=== PATIENT | male | born 1950 | race African-American/Black ===

== ENCOUNTER 2019-06-11 08:24 | Inpatient (IN) | payer BC, MEDICAID ==
[~2019-06-11] VITALS: Ht 170.2 cm; Wt 72.8 kg
[2019-06-11] VITALS (19 sets, daily range): BP systolic 108–172; BP diastolic 44–107
[2019-06-11] MEDS ORDERED: AMLO5TAB88 PO (09:00)
[2019-06-11] MEDS ORDERED: SODIUM CHLORIDE 0.9% 1,000 ML IV ONE (10:03)
[2019-06-11] MEDS ORDERED: ASPIRIN 81MG TABLET PO ONE (10:15)
[2019-06-11] MEDS ORDERED: CLONIDINE 0.2MG TABLET PO ONE (10:15)
[2019-06-11 10:34] LABS: BASOPHILS % 0.8 % (0.0-2.0); EOSINOPHILS % 2.8 % (0.0-5.0); HEMATOCRIT. 39.2 % (42.0-52.0); LYMPHOCYTES % 34.1 % (20.0-50.0); MEAN CORPUSCULAR HEMOGLOBIN 29.1 pg (28.0-32.0); MEAN CORPUSCULAR VOLUME 87.6 fL (80.0-94.0); MEAN PLATELET VOLUME 8.8 fl (7.4-10.4); MONOCYTES % 10.7 % (2.0-8.0); NEUTROPHILS % 51.6 % (40.0-76.0); PLATELET 197 x1000/uL (130-400); RED BLOOD CELL COUNT 4.48 mill/uL (4.7-6.1); RED CELL DISTRIBUTION WIDTH 13.7 % (11.6-14.6)
[2019-06-11 10:43] LABS: CHLORIDE 106 mEq/L (98-107)
[2019-06-11 10:44] LABS: D-DIMER 1.76 mg/L FEU (<0.50); PARTIAL THROMBOPLASTIN TIME 27.8 sec (23.4-31.0); PROTHROMBIN TIME 10.7 sec (9.6-11.0)
[2019-06-11] MEDS ORDERED: ENOXAPARIN 80MG/0.8ML SYR SUBCUT ONE (11:45)
[2019-06-11] MEDS ORDERED: IOHEXOL-350 100 ML BOTTLE ONE (12:32)
[2019-06-11] MEDS ORDERED: MIDAZOLAM HCL 2 MG/2 ML VIAL ONE (12:39)
[2019-06-11] MEDS ORDERED: IODIXANOL 320MG/ML 100 ML BOTTLE IV ONE (12:39)
[2019-06-11] MEDS ORDERED: LIDOCAINE HCL 1% 20ML VIAL (Pyxis) INJ ONE (12:39)
[2019-06-11] MEDS ORDERED: FENTANYL CITRATE/PF 50MCG/ML 2ML VIAL ONE (12:39)
[2019-06-11] MEDS ORDERED: ACETAMINOPHEN 325MG TABLET PO PRN (13:45)
[2019-06-11] MEDS ORDERED: ONDANSETRON HCL 4MG/2ML INJ IV PRN ×2 (13:45→14:15)
[2019-06-11] MEDS ORDERED: ATROPINE SULFATE 1MG/10ML SYR IV PRN (13:45)
[2019-06-11] MEDS ORDERED: IPRATROPIUM/ALBUTEROL 0.5-3(2.5)MG/3ML NEB NEB PRN (14:15)
[2019-06-11] MEDS ORDERED: ACETAMINOPHEN 650MG SUPP PR PRN (14:15)
[2019-06-11] MEDS ORDERED: NICARDIPINE 100MCG/ML 10ML VIAL (CATH LAB) IV ONE (15:04)
[2019-06-11] MEDS ORDERED: NITROGLYCERIN 50MCG/ML 10ML VIAL (CATH LAB) IV ONE (15:04)
[2019-06-11] MEDS ORDERED: HEPARIN SODIUM 1,000 UNIT/1ML VIAL IV ONE (15:04)
[2019-06-11] MEDS ORDERED: DEXT 5%/0.45% NACL 1000ML 1,000 ML IV SCH (15:45)
[2019-06-11] MEDS ORDERED: PANTOPRAZOLE SODIUM 40 MG/VIAL IV SCH (15:45)
[2019-06-11 15:50] LABS: CLARITY URINE CLEAR (CLEAR); COLOR URINE YELLOW (YELLOW); KETONES URINE NEGATIVE (NEGATIVE); LEUKOCYTE ESTERASE URINE NEGATIVE (NEGATIVE); NITRITE URINE NEGATIVE (NEGATIVE); OCCULT BLOOD URINE NEGATIVE (NEGATIVE); PROTEIN URINE NEGATIVE (NEGATIVE); SPECIFIC GRAVITY URINE 1.059 (1.005-1.030); UROBILINOGEN URINE 0.2 E.U./dL (0.2-1.0)
[2019-06-11 15:59] LABS: *AMPHETAMINES SCREEN URINE NEGATIVE (NEGATIVE); *BARBITURATES SCREEN URINE NEGATIVE (NEGATIVE); *BENZODIAZEPINES SCREEN URINE PRESUMTIVE POSITIVE (NEGATIVE); *COCAINE SCREEN URINE NEGATIVE (NEGATIVE)
[2019-06-11 16:00] LABS: CANNABINOID URINE SCREEN NEGATIVE (NEGATIVE); METHADONE URINE SCREEN NEGATIVE (NEGATIVE); OPIATES URINE SCREEN NEGATIVE (NEGATIVE); PHENCYCLIDINE URINE SCREEN NEGATIVE (NEGATIVE)
[2019-06-11] MEDS ORDERED: ENOXAPARIN 60MG/0.6ML SYR SUBCUT NR (17:00)
[2019-06-11] MEDS ORDERED: MAGNESIUM 2 G PREMIX 50 ML IV NR (19:30)
[2019-06-11] MEDS: ALLOPURINOL 300 MG TABLET PO SCH (20:44)
[2019-06-11 20:48] LABS: INR 1.1; PROTHROMBIN TIME 10.9 sec (9.6-11.0)
[2019-06-11 20:58] LABS: CHLORIDE 110 mEq/L (98-107)
[2019-06-11] MEDS ORDERED: ATORVASTATIN CALCIUM 20MG TABLET PO SCH (21:00)
[2019-06-11] MEDS ORDERED: ASCORBIC ACID 500 MG TABLET PO SCH (21:00)
[2019-06-11] MEDS ORDERED: CHLORHEXIDINE GLUCONATE 4% EXTERNAL USE TOP SCH (21:00)
[2019-06-11] MEDS ORDERED: DOCUSATE SODIUM 100MG CAPSULE PO SCH (21:00)
[2019-06-11] MEDS ORDERED: METOPROLOL TARTRATE 25MG TABLET PO SCH (21:00)
[2019-06-12] VITALS (61 sets, daily range): BP systolic 113–200; BP diastolic 34–99
[2019-06-12] MEDS ORDERED: INSULIN REGULAR (DRIP) 100 UNITS in SODIUM CHLORIDE 0.9% 99 ML IV SCH ×2 (00:15→17:42)
[2019-06-12 00:57] LABS: CREATINE KINASE MB FRACTION 3.8 ng/mL (0.5-3.6)
[2019-06-12] MEDS ORDERED: ACETAMINOPHEN 500MG TABLET PO NR (04:30)
[2019-06-12] MEDS: ALLOPURINOL 300 MG TABLET PO SCH (04:34)
[2019-06-12] MEDS: CHLORHEXIDINE GLUCONATE 4% EXTERNAL USE TOP SCH (05:14)
[2019-06-12] MEDS ORDERED: BACITRACIN 15GM TUBE TOP ONE (05:23)
[2019-06-12] MEDS ORDERED: SKIN ADHESIVE 0.7 GM EA TOP ONE (05:23)
[2019-06-12] MEDS ORDERED: THROMBIN (BOVINE) 5000 UNITS/VIAL TOP ONE (05:24)
[2019-06-12] MEDS ORDERED: BACITRACIN 50,000 UNITS/VIAL ONE (05:24)
[2019-06-12] MEDS ORDERED: HEPARIN 1000 UNITS/ML 10ML ONE ×4 (05:39→07:22)
[2019-06-12] MEDS ORDERED: DOPAMINE 400MG/250ML PREMIX 250 ML IV ONE (05:39)
[2019-06-12] MEDS ORDERED: NITROGLYCERIN 50MG PREMIX 250 ML IV ONE (05:40)
[2019-06-12] MEDS ORDERED: PROPOFOL 200MG/20ML VIAL IV ONE (05:49)
[2019-06-12] MEDS ORDERED: CALCIUM CHLORIDE 1GM/10ML SYR IV ONE (05:50)
[2019-06-12 05:51] LABS: BASOPHILS % 0.9 % (0.0-2.0); EOSINOPHILS % 3.3 % (0.0-5.0); HEMATOCRIT. 35.5 % (42.0-52.0); HEMOGLOBIN. 11.8 g/dL (14.0-18.0); LYMPHOCYTES % 30.8 % (20.0-50.0); MEAN CORPUSCULAR HEMOGLOBIN 29.1 pg (28.0-32.0); MEAN CORPUSCULAR VOLUME 87.4 fL (80.0-94.0); MEAN PLATELET VOLUME 9.2 fl (7.4-10.4); MONOCYTES % 8.1 % (2.0-8.0); NEUTROPHILS % 56.9 % (40.0-76.0); PLATELET 179 x1000/uL (130-400); RED BLOOD CELL COUNT 4.06 mill/uL (4.7-6.1); RED CELL DISTRIBUTION WIDTH 13.4 % (11.6-14.6)
[2019-06-12] MEDS ORDERED: AMINOCAPROIC ACID 250 MG/ML 20ML VIAL ONE (05:51)
[2019-06-12] MEDS ORDERED: MIDAZOLAM HCL 2 MG/2 ML VIAL ONE (05:55)
[2019-06-12] MEDS ORDERED: DIPHENHYDRAMINE 50MG/ML VIAL ONE (05:56)
[2019-06-12] MEDS ORDERED: FENTANYL CITRATE/PF 50MCG/ML 5ML VIAL ONE (05:56)
[2019-06-12] MEDS ORDERED: ONDANSETRON HCL 4MG/2ML INJ ONE (05:56)
[2019-06-12] MEDS ORDERED: LIDOCAINE HCL/PF 1% 10 MG/ML 5ML VIAL ONE ×2 (05:56→06:49)
[2019-06-12] MEDS ORDERED: DEXAMETHASONE 4MG/ML 1ML VIAL ONE (05:59)
[2019-06-12] MEDS ORDERED: PAPAVERINE HCL 180MG in SODIUM CHLORIDE 0.9% 24ML IV SCH (06:00)
[2019-06-12] MEDS ORDERED: CEFAZOLIN 2,000 MG in DEXT 5% WATER 100 ML IV SCH (06:00)
[2019-06-12] MEDS ORDERED: AMINOCAPROIC ACID 10,000 MG in SODIUM CHLORIDE 0.9% 460 ML IV SCH (06:00)
[2019-06-12] MEDS ORDERED: NICARDIPINE 40MG/200ML PREMIX 200 ML IV SCH (06:00)
[2019-06-12] MEDS ORDERED: PHENYLEPHRINE 10 MG in DEXT 5% WATER 249 ML IV SCH (06:00)
[2019-06-12] MEDS ORDERED: EPINEPHRINE 4 MG in DEXT 5% WATER 246 ML IV SCH (06:00)
[2019-06-12] MEDS ORDERED: DILTIAZEM HCL 5MG/ML 5ML VIAL IV SCH (06:00)
[2019-06-12] MEDS ORDERED: NOREPINEPHRINE 4 MG in DEXT 5% WATER 246 ML IV SCH (06:00)
[2019-06-12] MEDS ORDERED: DOBUTAMINE 250MG PREMIX 250 ML IV SCH (06:00)
[2019-06-12] MEDS ORDERED: DEL NIDO ELECTROLYTE-S(PH 7.4) 1,000 ML IV SCH ×2 (06:00)
[2019-06-12] MEDS ORDERED: ROCURONIUM BROMIDE 10MG/ML VIAL 5ML IV ONE (06:02)
[2019-06-12] MEDS ORDERED: ETOMIDATE 2MG/ML 10ML VIAL IV ONE (06:03)
[2019-06-12 06:10] LABS: CHLORIDE 109 mEq/L (98-107)
[2019-06-12 06:18] LABS: LDL CHOLESTEROL 122 mg/dL (5-100)
[2019-06-12 06:20] LABS: CREATINE KINASE 171 IU/L (39-308)
[2019-06-12 06:21] LABS: CREATINE KINASE MB FRACTION 3.9 ng/mL (0.5-3.6); HDL CHOLESTEROL 47 mg/dL (40-59); T4 FREE 0.91 ng/dL (0.76-1.46)
[2019-06-12] MEDS ORDERED: ALBUMIN HUMAN 25GM/100ML (25%) IV ONE (07:30)
[2019-06-12] MEDS ORDERED: FUROSEMIDE 100MG/10ML VIAL ONE (07:42)
[2019-06-12] MEDS ORDERED: ASPIRIN 81MG EC TABLET PO SCH (09:00)
[2019-06-12] MEDS ORDERED: NEOSTIGMINE METHYLSULFATE 1MG/ML 10 ML VIAL ONE (10:11)
[2019-06-12] MEDS ORDERED: SODIUM CHLORIDE 0.9% 500 ML IV PRN (10:32)
[2019-06-12] MEDS ORDERED: DOPAMINE 400MG/250ML PREMIX 250 ML IV PRN (10:32)
[2019-06-12] MEDS ORDERED: MAGNESIUM SULFATE 1G IN DEXT 5% 100ML PREMIX IV ONE (10:39)
[2019-06-12] MEDS ORDERED: POTASSIUM CHLORIDE 10MEQ IN WATER 50ML PREMIX IV ONE (10:39)
[2019-06-12] MEDS ORDERED: ALBUMIN HUMAN 12.5G/250ML (5%) IV ONE (10:39)
[2019-06-12] MEDS ORDERED: ALBUMIN HUMAN 12.5G/250ML (5%) IV PRN (10:45)
[2019-06-12] MEDS ORDERED: MAGNESIUM 1 G PREMIX 100 ML IV PRN (10:45)
[2019-06-12] MEDS ORDERED: ALBUMIN HUMAN 25GM/100ML (25%) IV PRN (10:45)
[2019-06-12] MEDS ORDERED: MAGNESIUM 2 G PREMIX 50 ML IV PRN (10:45)
[2019-06-12] MEDS ORDERED: EPINEPHRINE 1 MG in DEXT 5% WATER 249 ML IV PRN (10:45)
[2019-06-12] MEDS ORDERED: MORPHINE SULFATE 2 MG/ML CPJ (NOT FOR IM USE) IV PRN (10:45)
[2019-06-12] MEDS: NICARDIPINE 50 MG in SODIUM CHLORIDE 0.9% 230 ML IV PRN ×3 (11:00→20:55)
[2019-06-12 11:15] LABS: BG CARBOXYHEMOGLOBIN 0.2 % (0.5-1.5); BG DEOXYHEMOGLOBIN 2.3 % (0.0-5.0); BG FRACTION INSPIRED OXYGEN 60; BG HCO3 ACT 18.5 mmol/L (22.0-26.0); BG METHEMOGLOBIN 0.3 % (0.0-1.5); BG OXYGEN SATURATION 97.7 % (92.0-98.5); BG OXYHEMOGLOBIN 97.2 % (94.0-97.0); BG PCO2 41.7 mmHg (35.0-45.0); BG PH 7.265 (7.350-7.450); BG PO2 108.8 mmHg (75.0-100.0); BG SAMPLE SITE A-LINE; BG TOTAL HEMOGLOBIN 11.7 g/dL (12.0-18.0); BG VENT MODE MASK - SIMPLE
[2019-06-12 11:44] LABS: BASOPHILS % 0.3 % (0.0-2.0); EOSINOPHILS % 0.3 % (0.0-5.0); HEMATOCRIT. 31.4 % (42.0-52.0); HEMOGLOBIN. 10.3 g/dL (14.0-18.0); MEAN CORPUSCULAR HEMOGLOBIN 29.1 pg (28.0-32.0); MEAN CORPUSCULAR VOLUME 88.9 fL (80.0-94.0); MEAN PLATELET VOLUME 8.7 fl (7.4-10.4); MONOCYTES % 3.1 % (2.0-8.0); NEUTROPHILS % 85.3 % (40.0-76.0); PLATELET 167 x1000/uL (130-400); RED BLOOD CELL COUNT 3.53 mill/uL (4.7-6.1); RED CELL DISTRIBUTION WIDTH 13.2 % (11.6-14.6)
[2019-06-12 11:52] LABS: INR 1.2; PARTIAL THROMBOPLASTIN TIME 35.7 sec (23.4-31.0); PROTHROMBIN TIME 12.4 sec (9.6-11.0)
[2019-06-12 11:53] LABS: CHLORIDE 111 mEq/L (98-107)
[2019-06-12] MEDS: DEXT 5%/0.45% NACL 1000ML 1,000 ML IV SCH (12:07)
[2019-06-12] MEDS: IPRATROPIUM/ALBUTEROL 0.5-3(2.5)MG/3ML NEB HHN SCH ×3 (12:17→20:01)
[2019-06-12] MEDS ORDERED: KCL 20MEQ/100ML PREMIX 50 ML IV PRN (12:30)
[2019-06-12] MEDS ORDERED: KCL 20MEQ/100ML PREMIX 100 ML IV PRN ×2 (12:30→13:12)
[2019-06-12] MEDS: MAGNESIUM SULFATE 3 GM in DEXT 5% WATER 100 ML IV PRN ×2 (13:09→17:33)
[2019-06-12] MEDS: KCL 20MEQ/100ML PREMIX 100 ML IV PRN ×2 (13:09→14:30)
[2019-06-12] MEDS: KETOROLAC 15MG/ML VIAL IV SCH ×2 (13:36→19:30)
[2019-06-12] MEDS: CEFAZOLIN 1000MG PREMIX 50 ML IV SCH ×2 (15:25→22:03)
[2019-06-12] MEDS: BACITRACIN 15GM TUBE TOP SCH (16:15)
[2019-06-12] MEDS: DOCUSATE SODIUM 100MG CAPSULE PO SCH (16:15)
[2019-06-12] MEDS: OXYCODONE HCL/ACETAMINOPHEN 5/325MG TABLET PO PRN (16:16)
[2019-06-12 16:42] LABS: HEMOGLOBIN 10.8 g/dL (14.0-18.0); MEAN CORPUSCULAR HEMOGLOBIN 29.3 pg (28.0-32.0); MEAN CORPUSCULAR VOLUME 86.7 fL (80.0-94.0); PLATELET 159 x1000/uL (130-400); RED BLOOD CELL COUNT 3.69 mill/uL (4.7-6.1)
[2019-06-12 16:49] LABS: CHLORIDE 114 mEq/L (98-107)
[2019-06-12] MEDS: KCL 10MEQ/50ML PREMIX 50 ML IV PRN (17:33)
[2019-06-12] MEDS ORDERED: DEXTROSE 50% WATER 50ML SYRINGE IV PRN ×2 (17:45)
[2019-06-12] MEDS: BLOOD SUGAR DIAGNOSTIC STRIP TEST SCH ×6 (18:00→22:57)
[2019-06-12] MEDS: CLOPIDOGREL 75MG TABLET PO SCH (19:38)
[2019-06-12] MEDS: ASPIRIN 81MG TABLET PO SCH (19:38)
[2019-06-12] MEDS: METOPROLOL TARTRATE 25MG TABLET PO SCH ×2 (19:39→20:21)
[2019-06-12 22:28] LABS: CHLORIDE 107 mEq/L (98-107)
[2019-06-12 22:35] LABS: PHOSPHORUS 2.4 mg/dL (2.5-4.9)
[2019-06-13] VITALS (64 sets, daily range): BP systolic 112–155; BP diastolic 47–94
[2019-06-13] MEDS: IPRATROPIUM/ALBUTEROL 0.5-3(2.5)MG/3ML NEB HHN SCH ×6 (00:18→19:52)
[2019-06-13] MEDS: BLOOD SUGAR DIAGNOSTIC STRIP TEST SCH ×16 (00:33→21:00)
[2019-06-13] MEDS: KETOROLAC 15MG/ML VIAL IV SCH ×2 (01:38→07:22)
[2019-06-13] MEDS: NICARDIPINE 50 MG in SODIUM CHLORIDE 0.9% 230 ML IV PRN (02:12)
[2019-06-13 05:49] LABS: BASOPHILS % 0.1 % (0.0-2.0); EOSINOPHILS % 0.1 % (0.0-5.0); HEMOGLOBIN. 11.2 g/dL (14.0-18.0); LYMPHOCYTES % 11.9 % (20.0-50.0); MEAN CORPUSCULAR HEMOGLOBIN 29.5 pg (28.0-32.0); MEAN PLATELET VOLUME 8.9 fl (7.4-10.4); MONOCYTES % 9.1 % (2.0-8.0); NEUTROPHILS % 78.8 % (40.0-76.0); PLATELET 167 x1000/uL (130-400); RED BLOOD CELL COUNT 3.79 mill/uL (4.7-6.1); RED CELL DISTRIBUTION WIDTH 13.1 % (11.6-14.6)
[2019-06-13 05:54] LABS: CHLORIDE 107 mEq/L (98-107)
[2019-06-13] MEDS: CEFAZOLIN 1000MG PREMIX 50 ML IV SCH ×2 (06:05→14:39)
[2019-06-13] MEDS: KCL 10MEQ/50ML PREMIX 50 ML IV PRN ×2 (06:06→07:23)
[2019-06-13] MEDS: DEXT 5%/0.45% NACL 1000ML 1,000 ML IV SCH (07:45)
[2019-06-13] MEDS: CLOPIDOGREL 75MG TABLET PO SCH (07:56)
[2019-06-13] MEDS: DOCUSATE SODIUM 100MG CAPSULE PO SCH ×2 (07:56→17:00)
[2019-06-13] MEDS: ASPIRIN 81MG TABLET PO SCH (07:56)
[2019-06-13] MEDS: METOPROLOL TARTRATE 50MG TABLET PO SCH ×2 (07:57→21:46)
[2019-06-13] MEDS: BACITRACIN 15GM TUBE TOP SCH ×2 (07:57→17:05)
[2019-06-13] MEDS: CHLORHEXIDINE GLUCONATE 4% EXTERNAL USE TOP SCH (08:48)
[2019-06-13] MEDS ORDERED: LISINOPRIL 10MG TABLET PO SCH (09:00)
[2019-06-13] MEDS ORDERED: DEXTROSE 50% WATER 50ML SYRINGE IV PRN (12:00)
[2019-06-13] MEDS: INSULIN LISPRO 100 UNITS/ML SUBCUT SCH ×3 (12:40→21:00)
[2019-06-13] MEDS ORDERED: BLOOD SUGAR DIAGNOSTIC STRIP TEST SCH (12:50)
[2019-06-13] MEDS: OXYCODONE HCL/ACETAMINOPHEN 5/325MG TABLET PO PRN (17:00)
[2019-06-13] MEDS: LISINOPRIL 10MG TABLET PO SCH (21:46)
[2019-06-13] MEDS: ATORVASTATIN CALCIUM 40MG TABLET PO SCH (21:46)
[2019-06-14] VITALS (12 sets, daily range): BP systolic 119–176; BP diastolic 77–114
[2019-06-14] MEDS: IPRATROPIUM/ALBUTEROL 0.5-3(2.5)MG/3ML NEB HHN SCH ×5 (05:00→20:45)
[2019-06-14] MEDS: OXYCODONE HCL/ACETAMINOPHEN 5/325MG TABLET PO PRN ×2 (05:13→11:47)
[2019-06-14 05:54] LABS: BASOPHILS % 0.4 % (0.0-2.0); EOSINOPHILS % 0.2 % (0.0-5.0); HEMOGLOBIN. 11.6 g/dL (14.0-18.0); MEAN CORPUSCULAR VOLUME 87.7 fL (80.0-94.0); MEAN PLATELET VOLUME 9.2 fl (7.4-10.4); MONOCYTES % 10.2 % (2.0-8.0); NEUTROPHILS % 75.2 % (40.0-76.0); PLATELET 193 x1000/uL (130-400); RED BLOOD CELL COUNT 3.99 mill/uL (4.7-6.1); RED CELL DISTRIBUTION WIDTH 13.2 % (11.6-14.6)
[2019-06-14 06:09] LABS: CHLORIDE 102 mEq/L (98-107)
[2019-06-14] MEDS: BLOOD SUGAR DIAGNOSTIC STRIP TEST SCH ×4 (06:50→20:14)
[2019-06-14] MEDS: INSULIN LISPRO 100 UNITS/ML SUBCUT SCH ×4 (06:50→20:20)
[2019-06-14] MEDS: DOCUSATE SODIUM 100MG CAPSULE PO SCH ×2 (08:30→17:06)
[2019-06-14] MEDS: ASPIRIN 81MG TABLET PO SCH (08:30)
[2019-06-14] MEDS: CLOPIDOGREL 75MG TABLET PO SCH (08:30)
[2019-06-14] MEDS: LISINOPRIL 10MG TABLET PO SCH (08:31)
[2019-06-14] MEDS: BACITRACIN 15GM TUBE TOP SCH ×2 (08:35→16:58)
[2019-06-14] MEDS: METOPROLOL TARTRATE 50MG TABLET PO SCH ×2 (09:10→20:19)
[2019-06-14] MEDS ORDERED: CLONIDINE 0.1MG TABLET PO PRN (12:15)
[2019-06-14 13:42] LABS: BG BASE EXCESS 2.6 mmol/L (-2.0-2.0); BG CARBOXYHEMOGLOBIN 0.6 % (0.5-1.5); BG DEOXYHEMOGLOBIN 1.8 % (0.0-5.0); BG FRACTION INSPIRED OXYGEN 28; BG HCO3 ACT 27.5 mmol/L (22.0-26.0); BG OXYGEN SATURATION 98.2 % (92.0-98.5); BG OXYHEMOGLOBIN 97.6 % (94.0-97.0); BG PCO2 43.1 mmHg (35.0-45.0); BG PH 7.422 (7.350-7.450); BG PO2 107.7 mmHg (75.0-100.0); BG SAMPLE SITE RIGHT BRACHIAL; BG TOTAL HEMOGLOBIN 13.1 g/dL (12.0-18.0); BG VENT MODE NASAL CANNULA
[2019-06-14] MEDS ORDERED: FUROSEMIDE 40MG/4ML VIAL IVP NR (14:30)
[2019-06-14] MEDS ORDERED: METOPROLOL TARTRATE 50MG TABLET PO NR (14:45)
[2019-06-14] MEDS ORDERED: MAGNESIUM 4 G PREMIX 100 ML IV NR (15:00)
[2019-06-14] MEDS: FUROSEMIDE 40MG TABLET PO SCH (17:06)
[2019-06-14] MEDS: LISINOPRIL 20MG TABLET PO SCH (20:19)
[2019-06-14] MEDS: ATORVASTATIN CALCIUM 40MG TABLET PO SCH (20:19)
[2019-06-15] VITALS (12 sets, daily range): BP systolic 118–154; BP diastolic 77–103
[2019-06-15] MEDS: IPRATROPIUM/ALBUTEROL 0.5-3(2.5)MG/3ML NEB HHN SCH ×6 (00:04→20:45)
[2019-06-15] MEDS: BLOOD SUGAR DIAGNOSTIC STRIP TEST SCH ×4 (06:00→20:22)
[2019-06-15] MEDS: INSULIN LISPRO 100 UNITS/ML SUBCUT SCH ×4 (06:01→20:22)
[2019-06-15 06:39] LABS: BASOPHILS % 0.4 % (0.0-2.0); EOSINOPHILS % 0.5 % (0.0-5.0); HEMOGLOBIN. 13.2 g/dL (14.0-18.0); LYMPHOCYTES % 15.8 % (20.0-50.0); MEAN CORPUSCULAR HEMOGLOBIN 29.2 pg (28.0-32.0); MEAN CORPUSCULAR VOLUME 86.5 fL (80.0-94.0); MEAN PLATELET VOLUME 9.4 fl (7.4-10.4); MONOCYTES % 10.8 % (2.0-8.0); NEUTROPHILS % 72.5 % (40.0-76.0); PLATELET 214 x1000/uL (130-400); RED CELL DISTRIBUTION WIDTH 13.3 % (11.6-14.6)
[2019-06-15 06:42] LABS: CHLORIDE 101 mEq/L (98-107)
[2019-06-15] MEDS: METOPROLOL TARTRATE 50MG TABLET PO SCH ×2 (08:49→20:24)
[2019-06-15] MEDS: BACITRACIN 15GM TUBE TOP SCH ×2 (08:50→17:09)
[2019-06-15] MEDS: FUROSEMIDE 40MG TABLET PO SCH ×2 (08:50→17:29)
[2019-06-15] MEDS: CLOPIDOGREL 75MG TABLET PO SCH (08:50)
[2019-06-15] MEDS: LISINOPRIL 20MG TABLET PO SCH ×2 (08:50→20:23)
[2019-06-15] MEDS: ASPIRIN 81MG TABLET PO SCH (08:50)
[2019-06-15] MEDS: DOCUSATE SODIUM 100MG CAPSULE PO SCH ×2 (08:50→17:29)
[2019-06-15] MEDS ORDERED: MAGNESIUM 2 G PREMIX 50 ML IV NR (10:30)
[2019-06-15 10:51] LABS: BG DEOXYHEMOGLOBIN 5.1 % (0.0-5.0); BG FRACTION INSPIRED OXYGEN 21; BG HCO3 ACT 24.1 mmol/L (22.0-26.0); BG METHEMOGLOBIN 0.4 % (0.0-1.5); BG OXYGEN SATURATION 94.8 % (92.0-98.5); BG OXYHEMOGLOBIN 93.5 % (94.0-97.0); BG PCO2 37.8 mmHg (35.0-45.0); BG PH 7.423 (7.350-7.450); BG PO2 70.9 mmHg (75.0-100.0); BG SAMPLE SITE LEFT BRACHIAL; BG TOTAL HEMOGLOBIN 14.1 g/dL (12.0-18.0); BG VENT MODE ROOM AIR
[2019-06-15] MEDS ORDERED: LACTULOSE 20G/30ML UDC PO NR (16:15)
[2019-06-15] MEDS: ATORVASTATIN CALCIUM 40MG TABLET PO SCH (20:23)
[2019-06-16] VITALS: BP 131/99
[2019-06-16] MEDS: IPRATROPIUM/ALBUTEROL 0.5-3(2.5)MG/3ML NEB HHN SCH ×2 (01:46→05:25)
[2019-06-16] MEDS: BLOOD SUGAR DIAGNOSTIC STRIP TEST SCH (05:50)
[2019-06-16] MEDS: INSULIN LISPRO 100 UNITS/ML SUBCUT SCH (05:51)
[2019-06-16 07:07] LABS: BASOPHILS % 0.6 % (0.0-2.0); EOSINOPHILS % 1.1 % (0.0-5.0); HEMATOCRIT. 39.6 % (42.0-52.0); HEMOGLOBIN. 13.4 g/dL (14.0-18.0); LYMPHOCYTES % 24.3 % (20.0-50.0); MEAN CORPUSCULAR HEMOGLOBIN 29.2 pg (28.0-32.0); MEAN CORPUSCULAR VOLUME 86.4 fL (80.0-94.0); MEAN PLATELET VOLUME 9.4 fl (7.4-10.4); MONOCYTES % 11.7 % (2.0-8.0); NEUTROPHILS % 62.3 % (40.0-76.0); PLATELET 254 x1000/uL (130-400); RED BLOOD CELL COUNT 4.58 mill/uL (4.7-6.1)
[2019-06-16 08:00] VITALS: BP 142/83
[2019-06-16] MEDS: ASPIRIN 81MG TABLET PO SCH (08:22)
[2019-06-16] MEDS: BACITRACIN 15GM TUBE TOP SCH (08:22)
[2019-06-16] MEDS: CLOPIDOGREL 75MG TABLET PO SCH (08:22)
[2019-06-16] MEDS: LISINOPRIL 20MG TABLET PO SCH (08:22)
[2019-06-16] MEDS: METOPROLOL TARTRATE 50MG TABLET PO SCH (08:23)
[2019-06-16 09:07] LABS: CHLORIDE 102 mEq/L (98-107)
[2019-06-16 11:55] VITALS: BP 142/83
== END 2019-06-16 13:00 | disposition home health service (06) | DRG 233 ==
LOC: ER 08:24 → CVICU 12:31 → EDBEDREQTM 12:34 → EDBEDREQ 12:34 → ER 12:45 → ENRESERV 12:50 → CVICU 06-12 09:39 → 3WST 06-13 16:42
PROVIDERS: ADMIT Internal Medicine; ATTEND Internal Medicine
PROC: 4A023N7 Measurement of Cardiac Sampling and Pressure, Left Heart, Percutaneous Approach (ICD-10-PCS; principal; 2019-06-12)
PROC: 02100Z9 Bypass Coronary Artery, One Artery from Left Internal Mammary, Open Approach (ICD-10-PCS; 2019-06-12)
PROC: 021209W Bypass Coronary Artery, Three Arteries from Aorta with Autologous Venous Tissue, Open Approach (ICD-10-PCS; 2019-06-12)
PROC: 06BQ4ZZ Excision of Left Saphenous Vein, Percutaneous Endoscopic Approach (ICD-10-PCS; 2019-06-12)
PROC: B211YZZ Fluoroscopy of Multiple Coronary Arteries using Other Contrast (ICD-10-PCS; 2019-06-12)
PROC: B215YZZ Fluoroscopy of Left Heart using Other Contrast (ICD-10-PCS; 2019-06-12)
DX: I21.4 Non-ST elevation (NSTEMI) myocardial infarction (principal); I50.43 Acute on chronic combined systolic (congestive) and diastolic (congestive) heart failure; I11.0 Hypertensive heart disease with heart failure; J44.9 Chronic obstructive pulmonary disease, unspecified; D64.9 Anemia, unspecified; E87.6 Hypokalemia; E78.5 Hyperlipidemia, unspecified; F17.210 Nicotine dependence, cigarettes, uncomplicated; E83.51 Hypocalcemia; R73.9 Hyperglycemia, unspecified; I25.2 Old myocardial infarction; Z82.49 Family history of ischemic heart disease and other diseases of the circulatory system
CPT/HCPCS: 36415; 36600; 71045; 71275; 80048; 80061; 80305; 81003; 82330; 82375; 82550; 82553; 82805; 82962; 83036; 83735; 83880; 84100; 84132; 84439; 84443; 84484; 85027; 85379; 85520; 86850; 86900; 86920; 88304; 93005; 93306; 93308; 93458; 94640; 96374; 97110; 97116; 97162; 99291; C1725; C1729; C1751; C1758; C1769; C1887; C1893; C9113; J0690; J1100; J1200; J1250; J1265; J1644; J1650; J1815; J1885; J1940; J2250; J2270; J2370; J2405; J2440; J2704; J2710; J3010; J3475; J3480; J3490; J7030; J7040; J7050; J7060; J7620; L3908; P9041; P9047; Q9967

== ENCOUNTER 2019-07-17 15:00 | Emergency (ER) | payer BC, MEDICAID ==
[~2019-07-17] VITALS: Ht 170.2 cm; Wt 75.0 kg
[~2019-07-17 15:00] MED LIST: AMLO5TAB88 PO
[2019-07-17 15:58] VITALS: BP 136/89
[2019-07-17 18:51] LABS: CHLORIDE 109 mEq/L (98-107)
== END 2019-07-17 22:07 | disposition left against medical advice (07) ==
LOC: ER 15:00
DX: M79.671 Pain in right foot (principal); I25.10 Atherosclerotic heart disease of native coronary artery without angina pectoris; I10 Essential (primary) hypertension; Z95.1 Presence of aortocoronary bypass graft; Z87.891 Personal history of nicotine dependence
CPT/HCPCS: 36415; 73650; 80048; 93971; 99284

== ENCOUNTER 2019-09-26 08:19 | Emergency (ER) | payer BC, MEDICAID ==
[~2019-09-26] VITALS: Ht 177.8 cm; Wt 71.0 kg
[2019-09-26 09:30] VITALS: BP 140/78
== END 2019-09-26 10:29 | disposition home or self-care (01) ==
LOC: ER 09:36
DX: S90.112A Contusion of left great toe without damage to nail, initial encounter (principal); X58.XXXA Exposure to other specified factors, initial encounter; Y93.89 Activity, other specified; Y92.89 Other specified places as the place of occurrence of the external cause; Y99.8 Other external cause status; F17.290 Nicotine dependence, other tobacco product, uncomplicated; I25.10 Atherosclerotic heart disease of native coronary artery without angina pectoris; I10 Essential (primary) hypertension; Z98.890 Other specified postprocedural states
CPT/HCPCS: 99281

== ENCOUNTER 2022-03-05 10:18 | Emergency (ER) | payer MEDICARE, MEDICAID ==
[~2022-03-05] VITALS: Ht 167.6 cm; Wt 59.0 kg
[2022-03-05 10:32] VITALS: BP 178/98
[2022-03-05] MEDS ORDERED: HYDR30CR7 TP (10:57)
[2022-03-05] MEDS ORDERED: CETI10TA6 PO (10:57)
[2022-03-05] MEDS ORDERED: PERM60CR4 TP (10:57)
== END 2022-03-05 11:19 | disposition home or self-care (01) ==
LOC: ER 10:18
DX: B86 Scabies (principal); I10 Essential (primary) hypertension
CPT/HCPCS: 99282

== ENCOUNTER 2022-04-01 08:31 | Emergency (ER) | payer OTHER, MEDICAID ==
[~2022-04-01] VITALS: Ht 167.6 cm; Wt 60.0 kg
[~2022-04-01 08:31] MED LIST changes: +CETI10TA6 PO; +HYDR30CR7 TP; +PERM60CR4 TP
[2022-04-01] MEDS ORDERED: ACETAMINOPHEN 325MG TABLET PO STA (08:44)
[2022-04-01 09:37] LABS: BASOPHILS % 0.8 % (0.0-2.0); EOSINOPHILS % 3.6 % (0.0-5.0); HEMATOCRIT. 38.6 % (42.0-52.0); HEMOGLOBIN. 12.6 g/dL (14.0-18.0); LYMPHOCYTES % 28.7 % (20.0-50.0); MEAN CORPUSCULAR HEMOGLOBIN 27.8 pg (28.0-32.0); MEAN CORPUSCULAR VOLUME 85.3 fL (80.0-94.0); MEAN PLATELET VOLUME 8.8 fl (7.4-10.4); MONOCYTES % 9.6 % (2.0-8.0); NEUTROPHILS % 57.3 % (40.0-76.0); PLATELET 191 x1000/uL (130-400); RED BLOOD CELL COUNT 4.53 mill/uL (4.7-6.1); RED CELL DISTRIBUTION WIDTH 14.7 % (11.6-14.6)
[2022-04-01 09:50] LABS: CHLORIDE 110 mEq/L (98-107)
[2022-04-01] MEDS ORDERED: IOHEXOL-350 100 ML BOTTLE ONE (12:22)
[2022-04-01] MEDS ORDERED: ACETAMINOPHEN 325MG TABLET PO SCH (12:45)
[2022-04-01 13:13] VITALS: BP 191/111
[2022-04-01 13:32] LABS: CLARITY URINE CLEAR (CLEAR); COLOR URINE YELLOW (YELLOW); KETONES URINE NEGATIVE (NEGATIVE); LEUKOCYTE ESTERASE URINE NEGATIVE (NEGATIVE); NITRITE URINE NEGATIVE (NEGATIVE); OCCULT BLOOD URINE NEGATIVE (NEGATIVE); PROTEIN URINE NEGATIVE (NEGATIVE); SPECIFIC GRAVITY URINE 1.032 (1.005-1.030); UROBILINOGEN URINE 0.2 E.U./dL (0.2-1.0)
== END 2022-04-01 13:46 | disposition left against medical advice (07) ==
LOC: ER 08:31 → EDBEDREQ 09:22 → EDBEDREQTM 11:13 → CANBEDREQ 13:45 → ER 13:46
DX: I71.4 Abdominal aortic aneurysm, without rupture (principal); I10 Essential (primary) hypertension; I44.0 Atrioventricular block, first degree; I25.10 Atherosclerotic heart disease of native coronary artery without angina pectoris; I25.2 Old myocardial infarction; Z95.1 Presence of aortocoronary bypass graft; F17.210 Nicotine dependence, cigarettes, uncomplicated; Z71.6 Tobacco abuse counseling
CPT/HCPCS: 36415; 71045; 71275; 74174; 80053; 81003; 83690; 84484; 85025; 85379; 93005; 99291; 99406; Q9967

== ENCOUNTER 2023-07-09 12:01 | Emergency (ER) | payer MEDICARE, MEDICAID ==
[~2023-07-09] VITALS: Ht 167.6 cm; Wt 71.0 kg
[2023-07-09 12:25] VITALS: BP 150/82; PULSE 80; RESP 16; TEMP 97.9; O2SAT 100
[2023-07-09 13:45] LABS: EOSINOPHILS % 3.3 % (0.0-5.0); HEMATOCRIT. 39.9 % (42.0-52.0); LYMPHOCYTES % 35.9 % (20.0-50.0); MEAN CORPUSCULAR HEMOGLOBIN 27.8 pg (28.0-32.0); MEAN CORPUSCULAR HGB CONC 32.5 g/dL (31.0-37.0); MEAN CORPUSCULAR VOLUME 85.5 fL (80.0-94.0); MEAN PLATELET VOLUME 8.8 fl (7.4-10.4); MONOCYTES % 12.7 % (2.0-8.0); NEUTROPHILS % 47.1 % (40.0-76.0); PLATELET 158 x1000/uL (130-400); RED BLOOD CELL COUNT 4.67 mill/uL (4.7-6.1); WHITE BLOOD COUNT 3.7 x1000/uL (4.5-11.0)
[2023-07-09 13:47] LABS: INR 1.1; PROTHROMBIN TIME 11.4 sec (9.6-11.0)
[2023-07-09 14:06] LABS: CLARITY URINE CLEAR (CLEAR); COLOR URINE DARK YELLOW (YELLOW); GLUCOSE URINE NEGATIVE (NEGATIVE); KETONES URINE TRACE (NEGATIVE); LEUKOCYTE ESTERASE URINE NEGATIVE (NEGATIVE); NITRITE URINE NEGATIVE (NEGATIVE); OCCULT BLOOD URINE NEGATIVE (NEGATIVE); PROTEIN URINE TRACE (NEGATIVE); SPECIFIC GRAVITY URINE 1.029 (1.005-1.030); UROBILINOGEN URINE 0.2 E.U./dL (0.2-1.0)
[2023-07-09 14:08] LABS: CHLORIDE 107 mEq/L (98-107); INDEX HEMOLYSI 1 (1-3); INDEX ICTERIC 1 (1-4); INDEX LIPEMIC 1 (1-3); POTASSIUM 3.7 mEq/L (3.5-5.1); SODIUM 141 mEq/L (136-145)
[2023-07-09 14:09] LABS: ALBUMIN 3.7 g/dL (3.4-5.0); CALCIUM 8.4 mg/dL (8.5-10.1); CARBON DIOXIDE 32 mEq/L (21-32); UREA NITROGEN BLOOD 16 mg/dL (7-21)
[2023-07-09 14:16] LABS: ALANINE AMINOTRANSFERASE 17 IU/L (13-61); ASPARTATE AMINOTRANSFERASE 20 IU/L (15-37); BILIRUBIN TOTAL 0.3 mg/dL (0.1-1.0); CREATININE 1.1 mg/dL (0.6-1.3); GLUCOSE 64 mg/dL (70-105); PROTEIN TOTAL 7.5 g/dL (6.0-8.3)
[2023-07-09 14:21] LABS: MUCUS URINE TRACE /lpf (NONE/TRACE); SQUAMOUS EPITHELIAL CELL URINE FEW /lpf (RARE/1+)
[2023-07-09 14:22] LABS: RBC URINE 0-2 /hpf (0-2)
[2023-07-09 14:23] LABS: BACTERIA URINE TRACE
[2023-07-09 14:24] LABS: WBC URINE 0-2 /hpf (0-2)
== END 2023-07-09 17:27 | disposition left against medical advice (07) ==
LOC: ER 12:01
DX: M79.605 Pain in left leg (principal); I10 Essential (primary) hypertension
CPT/HCPCS: 36415; 80053; 81003; 85025; 99282; 99283

== ENCOUNTER 2023-08-04 06:46 | Emergency (ER) | payer MEDICARE, MEDICAID ==
[~2023-08-04] VITALS: Ht 167.6 cm; Wt 59.0 kg
[2023-08-04 06:57] VITALS: BP 186/100; PULSE 73; RESP 16; TEMP 97.6; O2SAT 100
[2023-08-04 07:59] LABS: EOSINOPHILS % 2.7 % (0.0-5.0); HEMATOCRIT. 40.8 % (42.0-52.0); HEMOGLOBIN. 13.2 g/dL (14.0-18.0); LYMPHOCYTES % 27.1 % (20.0-50.0); MEAN CORPUSCULAR HGB CONC 32.2 g/dL (31.0-37.0); MEAN CORPUSCULAR VOLUME 86.8 fL (80.0-94.0); MEAN PLATELET VOLUME 8.7 fl (7.4-10.4); MONOCYTES % 8.6 % (2.0-8.0); NEUTROPHILS % 60.6 % (40.0-76.0); PLATELET 208 x1000/uL (130-400); RED CELL DISTRIBUTION WIDTH 14.2 % (11.6-14.6); WHITE BLOOD COUNT 5.8 x1000/uL (4.5-11.0)
[2023-08-04 08:52] LABS: ALANINE AMINOTRANSFERASE 8 IU/L (10-49); ALBUMIN 4.3 g/dL (3.2-4.8); ASPARTATE AMINOTRANSFERASE 18 IU/L (<34); BILIRUBIN TOTAL 0.3 mg/dL (0.1-1.0); CALCIUM 9.4 mg/dL (8.7-10.4); CARBON DIOXIDE 30 mEq/L (21-32); CHLORIDE 106 mEq/L (98-107); CREATININE 0.9 mg/dL (0.6-1.3); GLUCOSE 105 mg/dL (70-105); POTASSIUM 4.7 mEq/L (3.5-5.1); PROTEIN TOTAL 6.6 g/dL (6.0-8.3); SODIUM 142 mEq/L (136-145); UREA NITROGEN BLOOD 12 mg/dL (9-23)
== END 2023-08-04 10:47 | disposition left against medical advice (07) ==
LOC: ER 06:46
DX: M79.672 Pain in left foot (principal); I11.9 Hypertensive heart disease without heart failure; I25.10 Atherosclerotic heart disease of native coronary artery without angina pectoris; Z98.890 Other specified postprocedural states
CPT/HCPCS: 36415; 80053; 83880; 85025; 99282

== ENCOUNTER 2023-08-28 08:48 | Emergency (ER) | payer MEDICARE, MEDICAID ==
[~2023-08-28] VITALS: Ht 172.7 cm; Wt 63.6 kg
[2023-08-28 09:11] VITALS: BP 176/95; PULSE 90; RESP 18; TEMP 97.8; O2SAT 100
[2023-08-28 10:57] LABS: ALANINE AMINOTRANSFERASE 8 IU/L (10-49); ALBUMIN 4.3 g/dL (3.2-4.8); ASPARTATE AMINOTRANSFERASE 15 IU/L (<34); BILIRUBIN TOTAL 0.4 mg/dL (0.1-1.0); CALCIUM 9.3 mg/dL (8.7-10.4); CARBON DIOXIDE 34 mEq/L (21-32); CHLORIDE 107 mEq/L (98-107); GLUCOSE 153 mg/dL (70-105); POTASSIUM 4.3 mEq/L (3.5-5.1); PROTEIN TOTAL 7.4 g/dL (6.0-8.3); SODIUM 144 mEq/L (136-145); UREA NITROGEN BLOOD 14 mg/dL (9-23)
[2023-08-28 11:12] LABS: HEMOGLOBIN. 13.9 g/dL (14.0-18.0); MEAN CORPUSCULAR HEMOGLOBIN 28.3 pg (28.0-32.0); MEAN CORPUSCULAR VOLUME 85.8 fL (80.0-94.0); MEAN PLATELET VOLUME 8.9 fl (7.4-10.4); MONOCYTES % 6.1 % (2.0-8.0); NEUTROPHILS % 65.9 % (40.0-76.0); PLATELET 181 x1000/uL (130-400); RED CELL DISTRIBUTION WIDTH 13.9 % (11.6-14.6); WHITE BLOOD COUNT 5.8 x1000/uL (4.5-11.0)
[2023-08-28] MEDS ORDERED: IOHEXOL-350 100 ML BOTTLE ONE (13:32)
[2023-08-28] MEDS ORDERED: NICOTINE 21MG PATCH TD ONE (14:15)
== END 2023-08-28 19:57 | disposition left against medical advice (07) ==
LOC: ER 08:48 → CANBEDREQ 17:22 → ER 19:57
DX: I73.9 Peripheral vascular disease, unspecified (principal); I10 Essential (primary) hypertension
CPT/HCPCS: 99284; 93970; 75635; 80053; 85025; 36415; Q9967

== ENCOUNTER 2024-09-06 11:14 | Emergency (ER) | payer BC, MEDICAID ==
[~2024-09-06] VITALS: Ht 170.2 cm; Wt 68.0 kg
[2024-09-06 11:20] VITALS: O2SAT 99
[2024-09-06 11:29] VITALS: BP 182/108; PULSE 79; RESP 14; TEMP 97.8; O2SAT 100
== END 2024-09-06 17:33 | disposition left against medical advice (07) ==
LOC: ER 11:14
DX: M54.9 Dorsalgia, unspecified (principal); I10 Essential (primary) hypertension; Z98.890 Other specified postprocedural states; Z53.21 Procedure and treatment not carried out due to patient leaving prior to being seen by health care provider

== ENCOUNTER 2024-09-07 14:21 | Emergency (ER) | payer BC, MEDICAID ==
[~2024-09-07] VITALS: Ht 167.6 cm; Wt 66.0 kg
[2024-09-07 14:23] VITALS: O2SAT 95
[2024-09-07 14:36] VITALS: BP 186/115; PULSE 95; RESP 16; TEMP 98.3; O2SAT 100
== END 2024-09-07 17:36 | disposition left against medical advice (07) ==
LOC: ER 14:21
DX: S99.922A Unspecified injury of left foot, initial encounter (principal); Z53.21 Procedure and treatment not carried out due to patient leaving prior to being seen by health care provider; X58.XXXA Exposure to other specified factors, initial encounter; Y93.89 Activity, other specified; Y92.89 Other specified places as the place of occurrence of the external cause; Y99.8 Other external cause status

== ENCOUNTER 2024-11-08 06:11 | Inpatient (IN) | payer BC, MEDICAID ==
[~2024-11-08] VITALS: Ht 167.6 cm; Wt 74.8 kg
[2024-11-08 06:29] VITALS: O2SAT 100
[2024-11-08 07:23] LABS: BASOPHILS % 0.8 % (0.0-2.0); EOSINOPHILS % 3.6 % (0.0-5.0); HEMATOCRIT. 37.7 % (42.0-52.0); LYMPHOCYTES % 15.7 % (20.0-50.0); MEAN CORPUSCULAR HEMOGLOBIN 27.5 pg (28.0-32.0); MEAN CORPUSCULAR HGB CONC 31.8 g/dL (31.0-37.0); MEAN CORPUSCULAR VOLUME 86.4 fL (80.0-94.0); MEAN PLATELET VOLUME 9.7 fl (7.4-10.4); MONOCYTES % 4.6 % (2.0-8.0); NEUTROPHILS % 75.3 % (40.0-76.0); PLATELET 192 x1000/uL (130-400); RED BLOOD CELL COUNT 4.37 mill/uL (4.7-6.1); RED CELL DISTRIBUTION WIDTH 14.4 % (11.6-14.6); WHITE BLOOD COUNT 6.7 x1000/uL (4.5-11.0)
[2024-11-08] MEDS: LABETALOL 5MG/ML 4ML INJ IV ONE (07:38)
[2024-11-08 07:39] LABS: CHLORIDE 103 mEq/L (98-107); SODIUM 141 mEq/L (136-145)
[2024-11-08 07:40] LABS: CALCIUM 8.9 mg/dL (8.7-10.4); CARBON DIOXIDE 29 mEq/L (21-32)
[2024-11-08 07:45] LABS: GLUCOSE 127 mg/dL (70-105); INR 1.1; PARTIAL THROMBOPLASTIN TIME 28.8 sec (23.4-31.0); PROTHROMBIN TIME 11.4 sec (9.6-11.0); UREA NITROGEN BLOOD 11 mg/dL (9-23)
[2024-11-08 08:21] LABS: TROPONIN I HIGH SENSITIVITY 1690 ng/L (3.0-53)
[2024-11-08] MEDS ORDERED: AZITHROMYCIN 500MG/250ML 250 ML IV ONE (08:30)
[2024-11-08] MEDS: ASPIRIN 325MG EC TABLET PO ONE (09:08)
[2024-11-08] MEDS: CEFTRIAXONE 1GM/50ML 50 ML IV ONE (09:13)
[2024-11-08] MEDS: AZITHROMYCIN 500MG/250ML 250 ML IV NR (09:52)
[2024-11-08] MEDS: ENOXAPARIN 80MG/0.8ML SYR SUBCUT NR (11:08)
[2024-11-08] MEDS ORDERED: NITROGLYCERIN 0.4MG TABLET SL SL PRN (13:15)
[2024-11-08] MEDS ORDERED: ACETAMINOPHEN 325MG TABLET PO PRN (13:15)
[2024-11-08] MEDS ORDERED: AMLODIPINE 10MG TABLET PO SCH (13:15)
[2024-11-08] MEDS ORDERED: ONDANSETRON HCL 4MG/2ML INJ IV PRN (13:15)
[2024-11-08] MEDS ORDERED: IPRATROPIUM/ALBUTEROL 0.5-3(2.5)MG/3ML NEB HHN PRN (13:15)
[2024-11-08 14:38] LABS: IRON 48 ug/dL (65-175)
[2024-11-08 14:41] LABS: TOTAL IRON BINDING CAPACITY 296 ug/dl (250-425)
[2024-11-08] MEDS: NITROGLYCERIN OINT 1GM/INCH UDPKT TD SCH (14:49)
[2024-11-08 14:54] VITALS: BP 165/108; PULSE 84; RESP 19; TEMP 36.5
[2024-11-08 16:00] VITALS: BP 158/93; PULSE 77; RESP 19; TEMP 36.6; O2SAT 98
[2024-11-08] MEDS: CEFTRIAXONE 1GM/50ML 50 ML IV SCH (16:20)
[2024-11-08] MEDS ORDERED: GADOTERATE MEGLUMINE 5 MMOL/10 ML VIAL IV ONE (16:35)
[2024-11-08] MEDS: DOXYCYCLINE 100MG/100ML 100 ML IV SCH (17:56)
[2024-11-08 20:00] VITALS: BP 169/111; PULSE 94; RESP 21; TEMP 37.1; O2SAT 99
[2024-11-08 20:36] LABS: FERRITIN 145 ng/mL (22-322); FOLIC ACID (FOLATE) SERUM 9.68 ng/mL (>5.38); VITAMIN B12 SERUM 284 pg/mL (211-911)
[2024-11-08] MEDS: AMLODIPINE 5MG TABLET PO SCH (20:51)
[2024-11-08] MEDS: ATORVASTATIN CALCIUM 20MG TABLET PO SCH (20:51)
[2024-11-08] MEDS: ENOXAPARIN 80MG/0.8ML SYR SUBCUT SCH (20:51)
[2024-11-08 23:50] LABS: CLARITY URINE CLEAR (CLEAR); COLOR URINE YELLOW (YELLOW); GLUCOSE URINE NEGATIVE (NEGATIVE); KETONES URINE TRACE (NEGATIVE); LEUKOCYTE ESTERASE URINE NEGATIVE (NEGATIVE); NITRITE URINE NEGATIVE (NEGATIVE); OCCULT BLOOD URINE NEGATIVE (NEGATIVE); PH URINE 6.5 (4.5-8.0); PROTEIN URINE NEGATIVE (NEGATIVE); UROBILINOGEN URINE 0.2 E.U./dL (0.2-1.0)
[2024-11-08 23:58] LABS: *AMPHETAMINES SCREEN URINE NEGATIVE (NEGATIVE); *BARBITURATES SCREEN URINE NEGATIVE (NEGATIVE); *BENZODIAZEPINES SCREEN URINE NEGATIVE (NEGATIVE); *COCAINE SCREEN URINE NEGATIVE (NEGATIVE); METHADONE URINE SCREEN NEGATIVE (NEGATIVE); OPIATES URINE SCREEN NEGATIVE (NEGATIVE)
[2024-11-08 23:59] LABS: CANNABINOID URINE SCREEN NEGATIVE (NEGATIVE); ECSTASY MDMA SCREEN URINE NEGATIVE (NEGATIVE); PHENCYCLIDINE URINE SCREEN NEGATIVE (NEGATIVE)
[2024-11-09] VITALS: BP 182/118; PULSE 97; RESP 22; TEMP 37.1; O2SAT 98
[2024-11-09] MEDS: HYDRALAZINE 20MG/ML VIAL IV PRN (00:27)
[2024-11-09] MEDS ORDERED: TRAZODONE HCL 50MG TABLET PO PRN (02:00)
[2024-11-09] MEDS ORDERED: LOSARTAN 50 MG TABLET PO SCH (08:00)
[2024-11-09] MEDS ORDERED: ASPIRIN 81MG EC TABLET PO SCH (09:00)
[2024-11-09] MEDS ORDERED: DOXYCYCLINE 100MG/100ML 100 ML IV SCH (09:00)
[2024-11-09] MEDS ORDERED: CLOPIDOGREL 75MG TABLET PO SCH (09:00)
[2024-11-09] MEDS ORDERED: CEFTRIAXONE 1GM/50ML 50 ML IV SCH (14:00)
[2024-11-09] MEDS ORDERED: ATORVASTATIN CALCIUM 40MG TABLET PO SCH (21:00)
== END 2024-11-09 07:55 | disposition left against medical advice (07) | DRG 280 ==
LOC: ER 06:11 → 8WST 12:47 → EDBEDREQTM 12:52 → EDBEDREQ 12:52
PROVIDERS: ADMIT Internal Medicine; ATTEND Internal Medicine
DX: I16.1 Hypertensive emergency (principal); J18.9 Pneumonia, unspecified organism; I21.A1 Myocardial infarction type 2; J44.0 Chronic obstructive pulmonary disease with (acute) lower respiratory infection; I44.7 Left bundle-branch block, unspecified; I44.0 Atrioventricular block, first degree; D64.9 Anemia, unspecified; E78.5 Hyperlipidemia, unspecified; Z66 Do not resuscitate; Z53.29 Procedure and treatment not carried out because of patient's decision for other reasons; I10 Essential (primary) hypertension; I25.10 Atherosclerotic heart disease of native coronary artery without angina pectoris; F17.210 Nicotine dependence, cigarettes, uncomplicated; I25.2 Old myocardial infarction; Z79.82 Long term (current) use of aspirin; Z86.73 Personal history of transient ischemic attack (TIA), and cerebral infarction without residual deficits; Z91.148 Patient's other noncompliance with medication regimen for other reason; Z95.1 Presence of aortocoronary bypass graft
CPT/HCPCS: 36415; 70553; 71045; 80048; 80305; 81003; 82550; 82553; 82607; 82728; 82746; 83036; 83540; 83550; 84484; 85025; 93005; 99285; A9577; J0360; J0456; J0696; J1650; J3490

== ENCOUNTER 2025-01-17 06:20 | Emergency (ER) | payer BC, MEDICAID ==
[~2025-01-17] VITALS: Ht 167.6 cm; Wt 62.2 kg
[2025-01-17 06:21] VITALS: BP 177/101; PULSE 100; RESP 16; TEMP 36.7; O2SAT 100; O2SAT 97
[2025-01-17] MEDS ORDERED: MORPHINE SULFATE 4 MG/ML INJ (FOR IV/IM USE) IV ONE (07:00)
[2025-01-17 07:20] LABS: BASOPHILS % 0.8 % (0.0-2.0); EOSINOPHILS % 2.5 % (0.0-5.0); HEMATOCRIT. 38.5 % (42.0-52.0); HEMOGLOBIN. 12.5 g/dL (14.0-18.0); MEAN CORPUSCULAR HEMOGLOBIN 27.5 pg (28.0-32.0); MEAN CORPUSCULAR HGB CONC 32.4 g/dL (31.0-37.0); MEAN CORPUSCULAR VOLUME 84.7 fL (80.0-94.0); MEAN PLATELET VOLUME 9.2 fl (7.4-10.4); MONOCYTES % 6.9 % (2.0-8.0); NEUTROPHILS % 61.8 % (40.0-76.0); PLATELET 242 x1000/uL (130-400); RED BLOOD CELL COUNT 4.54 mill/uL (4.7-6.1); RED CELL DISTRIBUTION WIDTH 14.7 % (11.6-14.6)
[2025-01-17 07:21] LABS: CHLORIDE 108 mEq/L (98-107); SODIUM 144 mEq/L (136-145)
[2025-01-17 07:22] LABS: CARBON DIOXIDE 29 mEq/L (21-32)
[2025-01-17 07:23] LABS: CALCIUM 8.9 mg/dL (8.7-10.4)
[2025-01-17 08:36] LABS: GLUCOSE 106 mg/dL (70-105); UREA NITROGEN BLOOD 14 mg/dL (9-23)
[2025-01-17 08:42] LABS: TROPONIN I HIGH SENSITIVITY 60 ng/L (3.0-53)
== END 2025-01-17 08:31 | disposition left against medical advice (07) ==
LOC: ER 06:20 → CANBEDREQ 08:27 → ER 08:31
DX: R07.89 Other chest pain (principal); R06.02 Shortness of breath; I10 Essential (primary) hypertension; Z95.1 Presence of aortocoronary bypass graft
CPT/HCPCS: 36415; 71045; 80048; 83880; 84484; 85025; 93005; 99285; A4606

== ENCOUNTER 2025-01-30 12:56 | Emergency (ER) | payer BC, MEDICAID ==
[~2025-01-30] VITALS: Ht 167.6 cm; Wt 64.0 kg
[2025-01-30 13:24] LABS: EOSINOPHILS % 2.3 % (0.0-5.0); HEMATOCRIT. 37.8 % (42.0-52.0); HEMOGLOBIN. 12.5 g/dL (14.0-18.0); LYMPHOCYTES % 39.3 % (20.0-50.0); MEAN CORPUSCULAR HEMOGLOBIN 28.2 pg (28.0-32.0); MEAN CORPUSCULAR HGB CONC 33.1 g/dL (31.0-37.0); MEAN CORPUSCULAR VOLUME 85.3 fL (80.0-94.0); MEAN PLATELET VOLUME 8.9 fl (7.4-10.4); MONOCYTES % 5.6 % (2.0-8.0); NEUTROPHILS % 51.8 % (40.0-76.0); PLATELET 189 x1000/uL (130-400); RED BLOOD CELL COUNT 4.44 mill/uL (4.7-6.1); RED CELL DISTRIBUTION WIDTH 14.8 % (11.6-14.6); WHITE BLOOD COUNT 5.7 x1000/uL (4.5-11.0)
[2025-01-30 13:26] VITALS: O2SAT 99
[2025-01-30 13:33] LABS: CHLORIDE 110 mEq/L (98-107); POTASSIUM 3.8 mEq/L (3.5-5.1); SODIUM 143 mEq/L (136-145)
[2025-01-30 13:34] LABS: CARBON DIOXIDE 28 mEq/L (21-32)
[2025-01-30 13:39] LABS: CREATININE 1.1 mg/dL (0.6-1.3); GLUCOSE 107 mg/dL (70-105); UREA NITROGEN BLOOD 13 mg/dL (9-23)
[2025-01-30 13:46] LABS: TROPONIN I HIGH SENSITIVITY 57 ng/L (3.0-53)
[2025-01-30] MEDS: LABETALOL 5MG/ML 4ML INJ IV SCH (14:02)
[2025-01-30] MEDS: ASPIRIN 325MG EC TABLET PO SCH (14:02)
[2025-01-30 16:43] VITALS: BP 173/116; PULSE 79; RESP 18; TEMP 37.1; O2SAT 100
[2025-01-30] MEDS ORDERED: ONDANSETRON HCL 4MG/2ML INJ IV PRN (17:30)
[2025-01-30] MEDS ORDERED: AMLODIPINE 5MG TABLET PO SCH (17:30)
[2025-01-30] MEDS ORDERED: HYDRALAZINE 20MG/ML VIAL IV PRN (17:30)
[2025-01-30] MEDS ORDERED: ACETAMINOPHEN 325MG TABLET PO PRN (17:30)
[2025-01-30] MEDS ORDERED: ASPIRIN 81MG TABLET PO SCH (17:30)
[2025-01-30 17:56] LABS: THYROID STIMULATING HORMONE 0.75 uIU/mL (0.55-4.78)
[2025-01-30] MEDS ORDERED: ATORVASTATIN CALCIUM 40MG TABLET PO SCH (21:00)
[2025-01-30] MEDS ORDERED: CLONIDINE 0.1MG TABLET PO SCH (22:00)
[2025-01-31] MEDS ORDERED: ENOXAPARIN 40MG/0.4ML SYR SUBCUT SCH (09:00)
[2025-01-31] MEDS ORDERED: PANTOPRAZOLE SODIUM 40 MG/VIAL IV SCH (09:00)
== END 2025-01-30 16:53 | disposition left against medical advice (07) ==
LOC: ER 12:56 → EDBEDREQ 16:00 → EDBEDREQTM 16:00 → ENRESERV 16:15 → ER 16:53
DX: I16.0 Hypertensive urgency (principal); R00.2 Palpitations; R79.89 Other specified abnormal findings of blood chemistry; I25.10 Atherosclerotic heart disease of native coronary artery without angina pectoris; E78.5 Hyperlipidemia, unspecified; I25.2 Old myocardial infarction; J44.9 Chronic obstructive pulmonary disease, unspecified; Z79.82 Long term (current) use of aspirin; Z79.899 Other long term (current) drug therapy; Z86.73 Personal history of transient ischemic attack (TIA), and cerebral infarction without residual deficits; Z87.891 Personal history of nicotine dependence; Z95.1 Presence of aortocoronary bypass graft; Z98.890 Other specified postprocedural states
CPT/HCPCS: 99291; 96374; 80061; 80048; 83036; 84443; 85025; 84484; 36415; 71045; 93005; J3490

== ENCOUNTER 2025-06-16 18:00 | Inpatient (IN) | payer BC, MEDICAID, MEDICARE ==
[~2025-06-16] VITALS: Ht 175.3 cm; Wt 67.2 kg
[~2025-06-16 18:00] MED LIST changes: +PERM60CR20 TP; -PERM60CR4 TP
[2025-06-16] MEDS: ALBUTEROL (0.083%) 2.5MG/3ML NEB HHN ONE (18:40)
[2025-06-16 18:41] VITALS: PULSE 95; RESP 20; O2SAT 98
[2025-06-16] MEDS: ASPIRIN 325MG TABLET PO ONE (18:53)
[2025-06-16] MEDS: NITROGLYCERIN 0.4MG TABLET SL SL ONE (18:54)
[2025-06-16 18:55] LABS: BG DEOXYHEMOGLOBIN 65.1 % (0.0-5.0)
[2025-06-16 19:39] LABS: BASOPHILS % 1.0 % (0.0-2.0); EOSINOPHILS % 0.5 % (0.0-5.0); HEMATOCRIT. 39.0 % (42.0-52.0); HEMOGLOBIN. 12.5 g/dL (14.0-18.0); LYMPHOCYTES % 17.6 % (20.0-50.0); MEAN PLATELET VOLUME 10.0 fl (7.4-10.4); MONOCYTES % 6.1 % (2.0-8.0); NEUTROPHILS % 74.8 % (40.0-76.0); PLATELET 208 x1000/uL (130-400); RED BLOOD CELL COUNT 4.47 mill/uL (4.7-6.1); RED CELL DISTRIBUTION WIDTH 15.8 % (11.6-14.6)
[2025-06-16 19:53] LABS: CREATININE 1.6 mg/dL (0.6-1.3)
[2025-06-16 19:54] LABS: UREA NITROGEN BLOOD 39 mg/dL (9-23)
[2025-06-16 19:55] LABS: ASPARTATE AMINOTRANSFERASE 51 IU/L (<34)
[2025-06-16 19:56] LABS: BILIRUBIN DIRECT 0.5 mg/dL (<=3.0); BILIRUBIN TOTAL 1.3 mg/dL (0.1-1.0); PROTEIN TOTAL 6.7 g/dL (6.0-8.3)
[2025-06-16 20:00] LABS: TROPONIN I HIGH SENSITIVITY 711 ng/L (3.0-53)
[2025-06-16] MEDS: ENOXAPARIN 60MG/0.6ML SYR SUBCUT ONE (20:24)
[2025-06-16 21:21] LABS: INR 1.6
[2025-06-16] MEDS ORDERED: GUAIFENESIN 200MG/10ML SUGAR FREE UDC PO PRN (22:00)
[2025-06-16] MEDS ORDERED: ONDANSETRON HCL 4MG/2ML INJ IV PRN (22:00)
[2025-06-16] MEDS ORDERED: IPRATROPIUM/ALBUTEROL 0.5-3(2.5)MG/3ML NEB HHN PRN (22:00)
[2025-06-16] MEDS ORDERED: NITROGLYCERIN 0.4MG TABLET SL SL PRN (22:00)
[2025-06-16] MEDS ORDERED: ACETAMINOPHEN 325MG TABLET PO PRN ×2 (22:00)
[2025-06-16] MEDS ORDERED: DOCUSATE SODIUM 100MG CAPSULE PO PRN (22:00)
[2025-06-16 22:20] VITALS: BP 156/101; PULSE 88; RESP 18; TEMP 36.4; TEMP 36.418; O2SAT 99
[2025-06-16] MEDS: CLONIDINE 0.1MG TABLET PO PRN (22:37)
[2025-06-16] MEDS: PANTOPRAZOLE SODIUM 40 MG/VIAL IV SCH (22:37)
[2025-06-16] MEDS: MAGNESIUM/ALUMINUM HYDROXIDE/SIMETHICONE 30ML UDC PO SCH (22:37)
[2025-06-17] VITALS: BP 132/78; PULSE 73; RESP 19; TEMP 36.2; O2SAT 100
[2025-06-17 04:00] VITALS: BP 156/103; PULSE 83; RESP 20; TEMP 36.3; O2SAT 99
[2025-06-17 08:00] VITALS: BP 143/106; PULSE 74; RESP 18; TEMP 35.9; O2SAT 98
[2025-06-17 08:02] LABS: CREATININE 1.2 mg/dL (0.6-1.3); UREA NITROGEN BLOOD 34 mg/dL (9-23)
[2025-06-17 08:33] LABS: TROPONIN I HIGH SENSITIVITY 607 ng/L (3.0-53)
[2025-06-17] MEDS: AMLODIPINE 5MG TABLET PO SCH (10:05)
[2025-06-17] MEDS: ASPIRIN 81MG TABLET PO SCH (10:05)
[2025-06-17] MEDS: FUROSEMIDE 40MG/4ML VIAL IVP SCH (10:05)
[2025-06-17] MEDS: ASPIRIN 81MG EC TABLET PO SCH (10:05)
[2025-06-17] MEDS: CARVEDILOL 3.125 MG TABLET PO SCH (10:06)
[2025-06-17 12:00] VITALS: BP 138/88; PULSE 65; RESP 20; TEMP 36.3; O2SAT 95
[2025-06-17 16:00] VITALS: BP 136/89; PULSE 72; RESP 20; TEMP 36.6; O2SAT 99
[2025-06-17] MEDS ORDERED: ATORVASTATIN CALCIUM 40MG TABLET PO SCH (21:00)
[2025-06-17] MEDS ORDERED: ENOXAPARIN 40MG/0.4ML SYR SUBCUT SCH (21:00)
[2025-06-18] MEDS ORDERED: FUROSEMIDE 40MG/4ML VIAL IVP SCH (06:00)
== END 2025-06-17 17:36 | disposition left against medical advice (07) | DRG 280 ==
LOC: ER 18:00 → 7WST 20:17 → EDBEDREQTM 20:57 → EDBEDREQ 20:57
PROVIDERS: ADMIT Internal Medicine; ATTEND Internal Medicine
DX: I11.0 Hypertensive heart disease with heart failure (principal); I50.23 Acute on chronic systolic (congestive) heart failure; I21.4 Non-ST elevation (NSTEMI) myocardial infarction; N17.9 Acute kidney failure, unspecified; K76.1 Chronic passive congestion of liver; R10.9 Unspecified abdominal pain; E78.5 Hyperlipidemia, unspecified; E80.6 Other disorders of bilirubin metabolism; Z53.29 Procedure and treatment not carried out because of patient's decision for other reasons; R00.0 Tachycardia, unspecified; I25.10 Atherosclerotic heart disease of native coronary artery without angina pectoris; I25.5 Ischemic cardiomyopathy; J44.9 Chronic obstructive pulmonary disease, unspecified; Z91.148 Patient's other noncompliance with medication regimen for other reason; Z79.82 Long term (current) use of aspirin; Z95.1 Presence of aortocoronary bypass graft; Z79.899 Other long term (current) drug therapy
CPT/HCPCS: 36415; 71045; 80048; 80076; 82375; 82803; 83735; 83880; 84443; 84484; 85025; 93005; 93970; 94070; 94640; 94664; 98960; 99285; A4606; J1650; J1938; J2470

== ENCOUNTER 2025-06-24 23:32 | Inpatient (IN) | payer MEDICAID, MEDICARE ==
[~2025-06-24] VITALS: Ht 167.6 cm; Wt 62.1 kg
[2025-06-24 23:39] VITALS: O2SAT 91
[2025-06-25] MEDS: ASPIRIN 325MG EC TABLET PO ONE (00:24)
[2025-06-25 00:30] LABS: BASOPHILS % 0.9 % (0.0-2.0); EOSINOPHILS % 1.4 % (0.0-5.0); HEMATOCRIT. 37.4 % (42.0-52.0); HEMOGLOBIN. 11.9 g/dL (14.0-18.0); LYMPHOCYTES % 23.4 % (20.0-50.0); MEAN PLATELET VOLUME 8.7 fl (7.4-10.4); MONOCYTES % 7.8 % (2.0-8.0); NEUTROPHILS % 66.5 % (40.0-76.0); PLATELET 257 x1000/uL (130-400); RED BLOOD CELL COUNT 4.35 mill/uL (4.7-6.1); RED CELL DISTRIBUTION WIDTH 15.7 % (11.6-14.6)
[2025-06-25 00:42] LABS: CREATININE 1.2 mg/dL (0.6-1.3)
[2025-06-25 00:43] LABS: UREA NITROGEN BLOOD 18 mg/dL (9-23)
[2025-06-25 00:44] LABS: ASPARTATE AMINOTRANSFERASE 186 IU/L (<34)
[2025-06-25 00:45] LABS: BILIRUBIN DIRECT 0.4 mg/dL (<=3.0); BILIRUBIN TOTAL 1.1 mg/dL (0.1-1.0); PROTEIN TOTAL 6.8 g/dL (6.0-8.3)
[2025-06-25 01:11] LABS: INR 1.1
[2025-06-25 01:14] LABS: TROPONIN I HIGH SENSITIVITY 122 ng/L (3.0-53)
[2025-06-25 01:28] LABS: *AMPHETAMINES SCREEN URINE NEGATIVE (NEGATIVE); *BARBITURATES SCREEN URINE NEGATIVE (NEGATIVE); *BENZODIAZEPINES SCREEN URINE NEGATIVE (NEGATIVE); *COCAINE SCREEN URINE NEGATIVE (NEGATIVE)
[2025-06-25 01:29] LABS: CANNABINOID URINE SCREEN NEGATIVE (NEGATIVE); ECSTASY MDMA SCREEN URINE NEGATIVE (NEGATIVE); METHADONE URINE SCREEN NEGATIVE (NEGATIVE); OPIATES URINE SCREEN NEGATIVE (NEGATIVE); PHENCYCLIDINE URINE SCREEN NEGATIVE (NEGATIVE)
[2025-06-25] MEDS: NITROGLYCERIN OINT 1GM/INCH UDPKT TD NR (02:08)
[2025-06-25] MEDS: FUROSEMIDE 40MG/4ML VIAL IVP NR (02:08)
[2025-06-25] MEDS: ENOXAPARIN 60MG/0.6ML SYR SUBCUT NR (02:09)
[2025-06-25 02:24] VITALS: O2SAT 91
[2025-06-25 03:23] LABS: CLARITY URINE CLEAR (CLEAR); COLOR URINE YELLOW (YELLOW); GLUCOSE URINE NEGATIVE (NEGATIVE); KETONES URINE NEGATIVE (NEGATIVE); PH URINE 5.0 (4.5-8.0); PROTEIN URINE NEGATIVE (NEGATIVE); SPECIFIC GRAVITY URINE 1.013 (1.005-1.030)
[2025-06-25 03:24] LABS: LEUKOCYTE ESTERASE URINE NEGATIVE (NEGATIVE); NITRITE URINE NEGATIVE (NEGATIVE); OCCULT BLOOD URINE NEGATIVE (NEGATIVE); UROBILINOGEN URINE 1 E.U./dL (0.2-1.0)
[2025-06-25 04:42] VITALS: BP 152/100; PULSE 92; RESP 18; TEMP 36.5292
== END 2025-06-25 06:20 | disposition left against medical advice (07) | DRG 291 ==
LOC: ER 23:32 → 6WST 06-25 01:21 → EDBEDREQ 06-25 01:35 → EDBEDREQTM 06-25 01:35 → EDBEDREQDT 06-25 01:35 → ENRESERV 06-25 02:08
PROVIDERS: ADMIT Internal Medicine; ATTEND Internal Medicine
DX: I11.0 Hypertensive heart disease with heart failure (principal); I50.23 Acute on chronic systolic (congestive) heart failure; Z95.1 Presence of aortocoronary bypass graft; F17.200 Nicotine dependence, unspecified, uncomplicated; I50.9 Heart failure, unspecified; R07.89 Other chest pain; Z53.29 Procedure and treatment not carried out because of patient's decision for other reasons; I44.7 Left bundle-branch block, unspecified; I25.2 Old myocardial infarction
CPT/HCPCS: 36415; 71045; 80048; 80076; 80305; 80320; 81003; 83880; 84484; 85025; 93005; 99285; J1650; J1938; G0480